=== PATIENT | female | born 1950 | race Asian ===

== ENCOUNTER → 2019-03-22 10:38 | Outpatient (CLI) | payer OTHER, SELFPAY ==
--- NOTE | ~2019-03-22 | XR_ITS ---
EXAMINATION: XR chest 2V EXAM DATE: 03/22/2019 10:59 INDICATION: Right lower chest pain. TECHNIQUE: Frontal and lateral projections of the chest obtained and reviewed. There is no prior monica dy for comparison. FINDINGS: There is tortuosity of the aorta. Right middle lobe or lingular subsegmental atelectasis s een on lateral. The lungs are otherwise clear. There are no pleural effusions. The cardiomediastina l silhouette is within normal limits. There is no pneumothorax suspected. Mild to moderate thoracal lumbar scoliosis. Mild to moderate thoracolumbar chronic appearing compression fracture. IMPRESSION: Right middle lobe or lingular subsegmental atelectasis. Reviewed, dictated and finalized at location A. ICATION CONSULTANT
== END ==
PROVIDERS: PCP Emergency Medicine; Visit Provider Emergency Medicine
DX: R09.1 Pleurisy (principal); R91.8 Other nonspecific abnormal finding of lung field
CPT/HCPCS: 71046

== ENCOUNTER 2020-07-05 09:31 | Outpatient (CLI) | payer OTHER, SELFPAY ==
--- NOTE | ~2020-07-05 | MM_ITS ---
EXAMINATION: MM screening daria BI w whitney HISTORY: Screening TECHNIQUE: Craniocaudal and mediolateral oblique 3-D tomosynthesis images were obtained and synthetic 2-D images were generated. CAD analysis was submitted and interpreted. COMPARISON: No prior mammogram is available for comparison at this institution. BREAST PARENCHYMAL COMPOSITION: The breasts are heterogeneously dense, which may obscure small masses . FINDINGS: There is no evidence of suspicious mass, calcification, or architectural distortion to sugg est malignancy in either breast. There has been no suspicious interval change. IMPRESSION: 1. No mammographic evidence of malignancy. 2. Recommend routine screening mammography in one year. BI-RADS Category 1: Negative Reviewed, dictated and finalized at location A.
--- NOTE | ~2020-07-05 | DEXA_ITS ---
Bone Density Report Name: Raphael Chaves Age: 69 Sex: Female Ethnicity: Date of : 1950 Indication: postmenopausal; parental hip fracture; height loss; Referring Provider: ABNER HANCOCK Study: Bone densitometry was performed. Exam Date: July 05, 2020 Accession number: [id number] Bone Density: Region BMD T-score Z-score Classification AP Spine (L1, L3, L4) 0.915 -1.3 0.9 Osteopenia Femoral Neck (Left) 0.575 -2.5 -0.6 Osteoporosis Total Hip (Left) 0.750 -1.6 0.0 Osteopenia Total Hip Bilateral Avg 0.769 -1.5 0.2 Osteopenia Femoral Neck (Right) 0.647 -1.8 0.0 Osteopenia Total Hip (Right) 0.787 -1.3 0.3 Osteopenia World Health Organization criteria for BMD impression classify patients as: Normal (T-score at or above -1.0), Osteopenia (T-score between -1.0 and -2.5), or Osteoporosis (T-score at or below -2.5). 10-year Fracture Risk: FRAX not reported because: Some T-score for Spine Total or Hip Total or Femoral Neck at or below -2.5 Clinical Information Provided by Patient: Parent has had a hip fracture Has used the following medications: Vitamin D, Calcium Patient maximum height was 63 Menopause Age: 47 Drinks caffeinated beverages Onset of menses at age 15 Number of children 2 Impression: The patient has osteoporosis, based on the Left Femoral Neck T-score. The patient has risk factors, including: parental hip fracture. Discussion: INCREASED RISK OF FRACTURE. BONE DENSITY IS UNDESIRABLY LOW AT ONE OR MORE SKELETAL SITES, CONSISTENT WITH POSTMENOPAUSAL OSTEOPOROSIS. This patient's lowest T-score meets the World Health Organization's (WHO) criteria for osteoporosis at one or more sites (T-score -2.5 or below). In untreated patients, the risk of osteoporotic fracture increases approximately two-fold for each 1.0 SD decrease in T-score. Low bone density is not the only risk factor for fracture; also consider factors such as patient's age, frailty or poor health, risk of falling, risk of injury, previous osteoporotic fracture, family history of osteoporosis, cigarette smoking, low body weight, etc. Not everyone with low bone mineral density has osteoporosis; osteomalacia and other metabolic bone disorders should also be considered. Patients who have osteoporosis should be evaluated for specific diseases and conditions (secondary causes) that may cause or contribute to bone loss. The [place] [employer] Clinical Endocrinologists (AACE) and National Osteoporosis Foundation (NOF) recommend pharmacologic intervention for all postmenopausal women whose T-score is in this range. The patient should follow a healthful lifestyle (good nutrition with adequate calcium and vitamin D, and appropriate weight-bearing exercise). Follow-Up: Consider a repeat BMD and Vertebral Fracture Assessment (VFA) exam in 2 years or soon
== END 2020-07-05 09:32 | disposition home or self-care (01) ==
LOC: ANHIMG 09:36
PROVIDERS: PCP Emergency Medicine; Visit Provider Emergency Medicine
DX: Z12.31 Encounter for screening mammogram for malignant neoplasm of breast (principal); R91.1 Solitary pulmonary nodule; M81.0 Age-related osteoporosis without current pathological fracture; M85.852 Other specified disorders of bone density and structure, left thigh; M85.851 Other specified disorders of bone density and structure, right thigh
CPT/HCPCS: 77063; 77067; 77080

== ENCOUNTER 2020-07-20 11:08 | Outpatient (CLI) | payer OTHER, SELFPAY ==
--- NOTE | ~2020-07-20 | CT_ITS ---
EXAMINATION: CT diagnostic chest wo con EXAM DATE: 07/20/2020 11:30 INDICATION: Lung nodule. TECHNIQUE: Spiral CT of the chest without contrast. Axial, coronal and sagittal images of the chest were reviewed. Coronal maximum intensity pixel images of chest reviewed. The dose-length product ( DLP) for this examination was 66.25 mGy-cm. The exposure was tailored according to patient size (aut o mA exposure control), and iterative reconstruction (ASIR) was used as additional dose reduction gema hnique. There is no prior study for comparison. FINDINGS: There are 2 right lower lobe nodules, appear to have small amount calcification. Probably granulomas. Mild emphysema. Mild bronchiectasis. Lingular subsegmental atelectasis.. There are no pl eural or pericardial effusions. Tracheobronchial tree is patent. There is no mediastinal, hilar o r axillary lymphadenopathy. There is no pneumothorax. Heart normal in size. There is minimal co ronary arterial calcification, arterial sclerosis. Upper abdomen is unremarkable. There is mild to moderate thoracic spondylosis without osteoblastic or osteolytic lesions identified. There is mild t o moderate anterior wedging of the L1 vertebral body, chronic. IMPRESSION: 1. Lingular subsegmental atelectasis. 2. Right lower lobe granulomata. 3. Mild emphysema and bronchiectasis. Reviewed, dictated and finalized at location B.
== END 2020-07-20 11:09 | disposition home or self-care (01) ==
LOC: ANHIMG 11:10
PROVIDERS: PCP Emergency Medicine; Visit Provider Emergency Medicine
DX: R91.1 Solitary pulmonary nodule (principal); J98.11 Atelectasis; J84.10 Pulmonary fibrosis, unspecified; J43.9 Emphysema, unspecified; J47.9 Bronchiectasis, uncomplicated
CPT/HCPCS: 71250

== ENCOUNTER 2021-07-12 10:19 | Outpatient (CLI) | payer OTHER, SELFPAY ==
--- NOTE | ~2021-07-12 | MM_ITS ---
EXAMINATION: MM screening daria BI w whitney HISTORY: Screening mammogram TECHNIQUE: Craniocaudal and mediolateral oblique 3-D tomosynthesis images were obtained and synthetic 2-D images were generated. CAD analysis was submitted and interpreted. COMPARISON: 07/05/2020 bilateral screening mammogram BREAST PARENCHYMAL COMPOSITION: The breasts are heterogeneously dense, which may obscure small masses . FINDINGS: There is no evidence of suspicious mass, calcification, or architectural distortion to sugg est malignancy in either breast. There has been no suspicious interval change. IMPRESSION: 1. No mammographic evidence of malignancy. 2. Recommend routine screening mammography in one year. BI-RADS Category 1: Negative Reviewed, dictated and finalized at location A.
== END 2021-07-12 10:20 | disposition home or self-care (01) ==
PROVIDERS: PCP Emergency Medicine; Visit Provider Emergency Medicine
DX: Z12.31 Encounter for screening mammogram for malignant neoplasm of breast (principal)
CPT/HCPCS: 77063; 77067

== ENCOUNTER 2022-03-11 00:51 | Day surgery (SDC) | payer OTHER, SELFPAY ==
[2022-02-27 12:16] VITALS: BMI 25.3
--- NOTE | 2022-03-11 07:07 | P.PNAN_ITS ---
Anes - Initial Pre Proc Eval Procedure: Operation Date: 03/11/22 11:15 Proposed Procedures p Esophagogastroduodenoscopy & Screening Colonoscopy - Carlos Enrique Suárez MD Date/Time: 03/11/22 07:07 Surgeon: Carlos Enrique Suárez MD Pre Op Diagnosis: GERD, hx colon polyps Patient Data Age: 71 Gender: F Height: 1.5 m Weight: 57 kg Allergies Allergy/AdvReac Type Severity Reaction Status Date / Time No Known Allergies Allergy Unverified 03/11/22 10:13 Home Medications Medication Instructions Recorded Confirmed Type carbidopa 25 mg-levodopa 250 mg 1 tablet PO TID 03/11/22 03/11/22 History tablet omeprazole 20 mg capsule,delayed 20 mg PO DAILY #30 caps 03/11/22 Rx release selegiline HCl 5 mg tablet 5 mg PO BID 03/11/22 03/11/22 History Patient hx anesthesia problems: none Family hx anesthesia problems: none Results Review: All pre-operative results and documents have been reviewed as part of the pre- operative evaluation. [facility] Past Medical History Medical History (Updated 03/11/22 @ 11:50 by Carlos Enrique Suárez MD) Parkinson disease Social History Social History (Updated 07/10/20 @ 13:09 by Faith Schneider MA) Smoking status: Never smoker Alcohol intake: never Living arrangements: with family Spiritual care concerns: No Anes - Eval Final PreProcedure Day of Procedure 03/11/22 07:07 Patient weight: normal Heart: regular rate and rhythm Lungs: clear to auscultation and normal air movement Airway: Mallampati scale class II Neurological: alert and oriented Last oral intake: >/= 8 hours ASA classification: III Emergent: no Anesthetic plan: proceed Anesthesia type and monitoring: general GIVS and standard monitoring Results Review: All pre-operative results and documents have been reviewed as part of the pre- operative evaluation. Informed Consent: The patient's anesthetic plan and its attendant risks and benefits were discussed with the patient/family/POA. Questions were solicited and answers provided to the satisfaction of the patient/family/POA.
[2022-03-11 10:16] VITALS: BP 127/83; PULSE 71; RESP 16; TEMP 36.4; O2SAT 100
[2022-03-11] MEDS: LACTATED RINGERS 1,000 ML 150 ML IV CONT (10:23)
--- NOTE | 2022-03-11 10:48 | PM.HPGS ---
History of Present Illness History of Present Illness Consent: Risks, benefits, and alternatives have been discussed and questions answered. Patient agrees to proceed with procedure. Chief complaint: GERD, hx colon polyps Narrative: Raphael Chaves is a 71 year old female Referred for both colonoscopy an EGD by Dr. Becerra. Patient speaks only French. History is obtained with the assistance of her daughter. Patient has a prior history of colon polyps. Patient apparently previously followed by Dr. Harris. Previous exam in 2018. She presents today for colonoscopy because of this prior history. She states that her weight appetite bowel movements are normal. No bleeding is noted. Her weight has remained stable. Patient also gives a history of GE reflux disease. She has a distant history of esophageal web. Recently has had atypical chest pain with frequent vomiting over the last year. Typically this only clears in the morning. She has rather vague abdominal discomfort poorly localized. She states that could be similar to the urge to have a bowel movement. EGD is requested by primary care service today. Review of Systems Review of Systems: Review of systems noncontributory. [facility] Past Medical History Medical History (Updated 03/11/22 @ 10:51 by Carlos Enrique Suárez MD) Parkinson disease Social History Social History (Updated 07/10/20 @ 13:09 by aFith Schneider MA) Smoking status: Never smoker Alcohol intake: never Living arrangements: with family Spiritual care concerns: No Meds Home Medications and Allergies Home Medications Medication Instructions Recorded Confirmed Type famotidine 20 mg tablet 20 mg PO DAILY 02/27/22 03/11/22 History carbidopa 25 mg-levodopa 250 mg 1 tablet PO TID 03/11/22 03/11/22 History tablet selegiline HCl 5 mg tablet 5 mg PO BID 03/11/22 03/11/22 History Allergies Allergy/AdvReac Type Severity Reaction Status Date / Time No Known Allergies Allergy Unverified 03/11/22 10:13 Vital Signs Vital Signs - 24 hr 03/11/22 10:16 Temperature 97.5 F L Pulse Rate 71 Respiratory Rate 16 Blood Pressure 127/83 Pulse Oximetry 100 Oxygen Delivery Room Air Exam Narrative: Physical exam reveals patient be alert. Vital signs stable. HEENT exam is unremarkable. Patient is anicteric. Lungs are clear. Heart without murmur. Abdomen bowel sounds present soft nontender with no organomegaly. Digital external rectal exam is normal. Assessment and Plan Assessment and plan (1) History of colon polyps: Code(s): Z86.010 - Personal history of colonic polyps Status: Acute Assessment and Plan: Patient has had colon polyps previously by Dr. Harris . Plan for surveillance colonoscopy now. Consider this at 5 year intervals. (2) Vomiting: Code(s): R11.10 - Vomiting, unspecified Status: Acute Assessment and Plan: Patient reports vomiting in the morning for the last year. EGD is requested will be performed. If this fails to identify difficulties follow-up in the office so that more complete history can be obtained is advised. Trial of anti-reflux measures also encouraged. Elevate head of bed at night no late snacks. [place] foods. Patient currently on famotidine. We may wish to try stronger acid suppression. Such as Prilosec. (3) GERD (gastroesophageal reflux disease): Code(s): K21.9 - Gastro-esophageal reflux disease without esophagitis Status: Acute Assessment and Plan: Patient gives a history of GE reflux disease. Old records reflect she did have distal esophageal web in 2014. EGD to be performed today. Consider Prilosec 20mg p.o. daily as an alternative to famotidine.
--- NOTE | 2022-03-11 11:52 | SUR.OPER ---
EGD ended at 1146. Colonoscopy started at 1151.
[2022-03-11 12:05] VITALS: BP 102/62; PULSE 69; RESP 17; O2SAT 100
[2022-03-11 12:15] VITALS: BP 103/65; PULSE 66; RESP 15; O2SAT 100
[2022-03-11 12:25] VITALS: BP 109/64; PULSE 61; RESP 16; O2SAT 99
== END 2022-03-11 12:35 | disposition home or self-care (01) ==
PROVIDERS: PCP Emergency Medicine; Visit Provider Internal Medicine Gastroenterology
PROC: 0DJ08ZZ Inspection of Upper Intestinal Tract, Via Natural or Artificial Opening Endoscopic (ICD-10-PCS; CPT 43235; principal; 2022-03-11 11:15)
DX: Z12.11 Encounter for screening for malignant neoplasm of colon (principal); K64.8 Other hemorrhoids; K22.70 Barrett's esophagus without dysplasia; K21.9 Gastro-esophageal reflux disease without esophagitis; G20 Parkinson's disease
CPT/HCPCS: 45378; 43239; 87081; 88305; J2704; J7120

== ENCOUNTER 2022-09-29 14:10 | Outpatient (CLI) | payer OTHER, SELFPAY ==
--- NOTE | ~2022-09-29 | DEXA_ITS ---
Bone Density Report Name: BONIFACIO FERNANDES Age: 72 Sex: Female Ethnicity: Date of : 1950 Indication: postmenopausal; screening for osteoporosis; height loss; Referring Provider: ABNER HANCOCK Study: Bone densitometry was performed. Exam Date: September 29, 2022 Accession number: [id number] Bone Density: Region BMD T-score Z-score Classification AP Spine(L1-L4) 0.924 -1.1 1.2 Osteopenia Femoral Neck (Left) 0.584 -2.4 -0.4 Osteopenia Total Hip (Left) 0.736 -1.7 0.0 Osteopenia Femoral Neck (Right) 0.660 -1.7 0.3 Osteopenia Total Hip (Right) 0.784 -1.3 0.4 Osteopenia Total Hip Mean 0.760 -1.5 0.2 Osteopenia World Health Organization criteria for BMD impression classify patients as: Normal (T-score at or above -1.0), Osteopenia (T-score between -1.0 and -2.5), or Osteoporosis (T-score at or below -2.5). 10-year Fracture Risk: FRAX not reported because: Treated for osteoporosis Clinical Information Provided by Patient: Is being treated for osteoporosis Has used the following medications: Prolia (i.e. denosumab), Calcium Patient maximum height was 64 Menopause Age: 47 Drinks caffeinated beverages Onset of menses at age 14 Number of children 1 Impression: The patient has low bone mass, based on the Left Femoral Neck T-score. Discussion: It is important to ask patients whether they are taking their medications and to encourage continued and appropriate compliance with their osteoporosis therapies to reduce fracture risk. It is also important to review their risk factors and encourage appropriate calcium and vitamin D intakes, exercise, fall prevention and other lifestyle measures. Follow-Up: Consider a repeat BMD and Vertebral Fracture Assessment (VFA) exam in 2 years or sooner if medically necessary, to reassess this patient's status. Reported by: FERNANDO on 09/29/2022 2:32:00 PM. Reviewed, dictated and finalized at location AFlorencia ONTIVEROS
== END 2022-09-29 14:11 | disposition home or self-care (01) ==
LOC: ANHIMG 14:11
PROVIDERS: PCP Emergency Medicine; Visit Provider Emergency Medicine
DX: M81.0 Age-related osteoporosis without current pathological fracture (principal); M85.88 Other specified disorders of bone density and structure, other site; M85.852 Other specified disorders of bone density and structure, left thigh; M85.851 Other specified disorders of bone density and structure, right thigh
CPT/HCPCS: 77080

== ENCOUNTER 2024-11-14 08:48 | Outpatient (CLI) | payer OTHER, SELFPAY ==
--- NOTE | ~2024-11-14 | XR_ITS ---
EXAMINATION: XR chest 2V, 11/14/2024 9:09 CDT HISTORY: shortness of breath COMPARISON: No comparisons available. Technique: 2 views obtained. Findings: The lungs are clear, no effusion. No pneumothorax. Heart is normal size. Mediastinal and hilar contours are within normal limits. Bony thorax no acute abnormality. Impression: No acute cardiopulmonary abnormality. Reviewed, dictated and finalized at location P. Impression: No acute cardiopulmonary abnormality.
--- OUTSIDE RECORDS SUMMARY | 2024-11-14 09:13 | XMS_ITS | Clinical Summary ---
Author Organization [facility] [employer] Address [address] [place] [address] Care Team Providers Care Manager Call Center Name Role Phone Fareed Becerra MD Primary Care Provider [phone] Source Comments [facility] [employer],non-owned Affiliates and Associated Physician Practices is amultiple site organization consisting of ambulatory clinics and hospital sitesin [place], [place], [place] and [place]. This disclosure is being madepursuant to the Care Everywhere program and may not contain all information available regarding this patient. Last updated 17.[employer] Allergies No known active allergies Medications * Be aware that medications may not be up to date on this document. Alwaysverify current medications with the patient. gabapentin (NEURONTIN) 300 MG capsule Take 1 (one) capsule by mouth once daily 01/01/2018 Active simvastatin (ZOCOR) 10 MG tablet Take 1 tablet by mouth once daily 01/01/2018 Active Coenzyme Q10 (CO Q-10) 120 MG Take 120 mg by mouth 2 times daily Active Calcium Carbonate (CALCIUM 600 PO) Take 1 tablet by mouth 2 times daily Active famotidine (PEPCID) 40 MG tablet Take 1 (one) tablet by mouth once daily 04/09/2021 Active omeprazole (PRILOSEC) 20 MG capsule 04/22/2021 Active famotidine (PEPCID) 20 MG tablet Take 1 (one) tablet by mouth 2 times daily 06/21/2021 Active carbidopa-levod opa (Sinemet) 25-100 MG tabletIndicatio ns:Parkinson's Disease Take 2 (two) tablets by mouth 3 times daily Reasons: Parkinson's Disease 540 tablet 5 12/02/2022 Active selegiline (Eldepryl) 5 MG tabletIndicatio ns:Parkinson's Disease Take 1 (one) tablet by mouth 2 times daily with morning and evening meal Reasons: Parkinson's Disease 180 tablet 5 12/02/2022 Active Active Problems Problem Noted Date Diagnosed Date Osteoporosis 12/03/2020 Immunizations Immunization Administration Dates Next Due INFLUENZA VACCINE, HIGH-DOSE , QUADR. (FLUZONE HIGH-DOSE QUADRIVALENT; 65Y+), 0.7 ML (HD-IIV4) 11/30/2020,10/26/2019 INFLUENZA VACCINE, QUADR. (F LUZONE; FLULAVAL; FLUARIX; AFLURIA QUADRIVALENT; 6MO+), 0.5 ML (IIV4) 01/22/2018 MMR 02/12/2010 TD (ADULT), 5 LF TETANUS TOXOID, ADSORBED, PF VARICELLA 02/12/2010,12/11/2009 ZOSTER VACCINE, LIVE 11/27/2015 Zoster Hzv Vacc Recombinant Inj Im 01/22/2018, Family History Medical History Relation Name Comments Other - Cardiac Father Heart Diseas e Relation Name Status Comments Father Mother Social History Tobacco Use Types Packs/Day Years Used Date Smoking Tobacco: Never Smokeless Tobacco: Never Tobacco Cessation:Counseling Given: Not Answered Alcohol Use Standard Drinks/Week Comments No 0 (1 standard drink = 0.6 oz pur e alcohol) Comments No Sex and Gender Information Value Date Recorded Sex Assigned at Not on file Legal Sex Female 3:33 PM CDT Gender Identity Not on file Sexual Orientation Not on file Last Filed Vital Signs Vital Sign Reading Time Taken Comments Blood Pressure 124/86 03/03/2023 8:22 AM [employer] Pulse 75 03/03/2023 8:22 AM [employer] Temperature 36.7 C (98 F) 03/03/2023 8:22 AM [employer] Respiratory Rate 20 03/03/2023 8:22 AM [employer] SALES [employer]ATE Oxygen Saturation 98% 03/03/2023 8:22 AM [employer] SAL[employer]ATE Inhaled Oxygen Concentration - - Weight 57.1 kg (125 lb 12.8 oz) 03/03/2023 8:22 AM [employer] SAL[employer] Height 152.4 cm (5') 11/20/2022 9:12 AM CDT Body Mass Index 24.57 11/20/2022 9:12 AM CDT Plan of Treatment Upcoming Encounters Date Type Department Care Team ([facility] st Contact Info) Description 11/21/2024 3:00 PM CDT Office Visit [facility] - Neurology [address] [place] [id number] BradyrekhaDevante, 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 [address] [place] [id number] Health Maintenance Due Date Last Done Comments BONE DENSITY TESTING 1950 COLOGUARD (AGES 45-75) - COL ON CA SCREENING 1950 COLON MONITORING 1950 COLONOSCOPY - COLON CA SCREENING 1950 CT COLONOGRAPHY - COLON CA SCREENING 1950 Colorectal Cancer Screening 1950 FIT - COLON CA SCREENING 1950 FLEX SIG - COLON CA SCREENING 1950 MAMMOGRAM 1950 HEPATITIS C SCREENING 08/06/1967 PNEUMOCOCCAL VACCINE 50+ (1 of 1 - PCV) 08/11/1999 DTAP/TDAP/TD VACCINES (2 - T d or Tdap) 12/12/2019 12/11/2009 DEPRESSION SCREENING 02/17/2024 Respiratory Syncytial Virus (RSV) Vaccine Pt: or over 60 yrs (1 - 1-dose 75+ series) 2024 COVID-19 VACCINE ( - 2023-2 5 season) 2024 INFLUENZA VACCINE (#1) 2024 , 10/26/2019, 01/22/2018 ZOSTER VACCINE Completed 01/22/2018, 08/07/2017, 11/27/2015 HEPATITIS B VACCINE Aged Out No longe r eligible based on patient's age to complete this topic HIB VACCINE Aged Out No longer eligi ble based on patient's age to complete this topic HPV VACCINE Aged Out No longer eligi ble based on patient's age to complete this topic MENINGOCOCCAL (Group B) VACCINE SHARED DECISION-MAKING Aged Out No longer eligible based on patient's age to complete this topic MENINGOCOCCAL GROUPS A/C/Y/W VACCINE Aged Out No longer eligible b ased on patient's age to complete this topic Insurance [facility] Care Teams Manager Call Center Relationship Specialty Start Date End Date Fareed Becerra MD PCP - General 01/11/18
== END 2024-11-14 08:49 | disposition home or self-care (01) ==
PROVIDERS: PCP Emergency Medicine; Visit Provider Emergency Medicine
DX: I95.9 Hypotension, unspecified (principal)
CPT/HCPCS: 71046

== ENCOUNTER 2024-11-24 01:32 | Day surgery (SDC) | payer OTHER, SELFPAY ==
[2024-11-23 09:03] VITALS: BMI 21.2
[2024-11-24 12:26] VITALS: BP 132/77; PULSE 80; RESP 20; TEMP 36.8; O2SAT 100
--- NOTE | 2024-11-24 12:53 | WPDANESEPPF ---
Anes - Initial Pre Proc Eval Procedure: Operation Date: 11/24/24 13:00 Proposed Procedures p EGD & Diagnostic Colonoscopy - Ron Carrasquillo MD Date/Time: 11/24/24 12:53 Surgeon: Ron Carrasquillo MD Pre Op Diagnosis: Iron deficiency anemia, unspecified Patient Data Age: 74 Gender: F Height: 1.52 m Weight: 47.2 kg Last Vital Signs Temp 98.2 F 11/24/24 12:26 Pulse 80 11/24/24 12:26 Resp 20 11/24/24 12:26 BP 132/77 11/24/24 12:26 Pulse Ox 100 11/24/24 12:26 O2 Del Method Room Air 11/24/24 12:26 Allergies Allergy/AdvReac Type Severity Reaction Status Date / Time No Known Allergies Allergy Verified 11/24/24 12:25 Home Medications ?Medication ?Instructions ?Recorded ?Confirmed ?Type carbidopa 25 mg-levodopa 250 mg 1 tablet PO TID 03/11/22 11/24/24 History tablet selegiline HCl 5 mg tablet 5 mg PO BID 03/11/22 11/24/24 History omeprazole 20 mg capsule,delayed 20 mg PO DAILY #30 caps 02/03/23 11/24/24 Rx release Patient hx anesthesia problems: none Family hx anesthesia problems: none Results Review: All pre-operative results and documents have been reviewed as part of the pre-operative evaluation. [facility] Past Medical History Medical History Parkinson disease Social History Social History Smoking status: Never smoker Alcohol intake: never Substance use: never Substance use type: does not use Living arrangements: with family Spiritual care concerns: No Anes - Eval Final PreProcedure Day of Procedure 11/24/24 12:53 Patient weight: normal Lungs: normal air movement Airway: Mallampati scale class II Neurological: alert and oriented Last oral intake: >/= 8 hours ASA classification: III Emergent: no Anesthetic plan: proceed Anesthesia type and monitoring: general GIVS and standard monitoring Results Review: All pre-operative results and documents have been reviewed as part of the pre-operative evaluation. Hx of barretts. Informed Consent: The patient's anesthetic plan and its attendant risks and benefits were discussed with the patient/family/POA. Questions were solicited and answers provided to the satisfaction of the patient/family/POA.
[2024-11-24] MEDS: LACTATED RINGERS 1,000 ML 150 ML IV CONT (13:01)
--- NOTE | 2024-11-24 13:05 | PM.HPGS ---
History of Present Illness History of Present Illness Consent: Risks, benefits, and alternatives have been discussed and questions answered. Patient agrees to proceed with procedure. Chief complaint: Iron deficiency anemia, unspecified Narrative: Raphael Chaves is a 74 year old female with zana, had scopes in 2022, noted cueva's Review of Systems Review of Systems: All systems reviewed & are unremarkable except as noted in HPI and below PMFSH Past Medical History Medical History (Updated 11/24/24 @ 13:06 by Ron Carrasquillo MD) Iron deficiency anemia Parkinson disease Social History Social History Smoking status: Never smoker Alcohol intake: never Substance use: never Substance use type: does not use Living arrangements: with family Spiritual care concerns: No Meds Home Medications and Allergies Home Medications ?Medication ?Instructions ?Recorded ?Confirmed ?Type carbidopa 25 mg-levodopa 250 mg 1 tablet PO TID 03/11/22 11/24/24 History tablet selegiline HCl 5 mg tablet 5 mg PO BID 03/11/22 11/24/24 History omeprazole 20 mg capsule,delayed 20 mg PO DAILY #30 caps 02/03/23 11/24/24 Rx release Allergies Allergy/AdvReac Type Severity Reaction Status Date / Time No Known Allergies Allergy Verified 11/24/24 12:25 Vital Signs Vital Signs - 24 hr 11/24/24 12:26 Temperature 98.2 F Pulse Rate 80 Respiratory Rate 20 Blood Pressure 132/77 Pulse Oximetry 100 Oxygen Delivery Room Air Exam Narrative: kyphosis Const: General: cooperative and comfortable Resp: Effort & Inspection: normal respiratory effort GI: GI Palp: Yes Soft to palpation Assessment and Plan Assessment and plan (1) Iron deficiency anemia: Code(s): D50.9 - Iron deficiency anemia, unspecified Status: Acute Assessment and Plan: egd and colonoscopy to assess if gi source
--- NOTE | 2024-11-24 13:14 | S_PTH ---
PATIENT: Raphael Chaves LOC: [facility]#:[id number] AGE/SX: 74/F ROOM: RE11/24/[address]: Ron Carrasquillo MD : 1950 BED: DIS: 11/24/2024 SPEC #: [id number] RECD: 11/25/24 07:10 STATUS: PEG REQ #: [id number] AMADO: 11/24/24 13:[address]: Ron Carrasquillo DEPT: [facility] Surgical RECD BY: Lynnette Pappas ENTERED: 11/25/24 07:11 SP TYPE: Surgical OTHR DR: Fareed Becerra MD Tissues: A - Small Bowel Bx B - Gastric Biopsy C - Esophageal Biopsy Procedures: Hematoxylin and Eosin Stain Gross and Microscopic Level 4
--- NOTE | 2024-11-24 13:23 | SUR.OPER ---
EGD ended at 1316, colon began at 1324.
[2024-11-24 13:35] VITALS: BP 125/63; PULSE 65; RESP 20; O2SAT 98
[2024-11-24 13:45] VITALS: BP 119/71; PULSE 66; RESP 19; O2SAT 98
[2024-11-24 13:55] VITALS: BP 148/77; PULSE 68; RESP 19; O2SAT 98
== END 2024-11-24 14:13 | disposition home or self-care (01) ==
PROVIDERS: PCP Emergency Medicine; Referring Provider Emergency Medicine; Visit Provider Internal Medicine Gastroenterology
PROC: 0DJ08ZZ Inspection of Upper Intestinal Tract, Via Natural or Artificial Opening Endoscopic (ICD-10-PCS; CPT 45378; principal; 2024-11-24 13:00)
DX: D50.9 Iron deficiency anemia, unspecified (principal); K22.70 Barrett's esophagus without dysplasia; K64.8 Other hemorrhoids; G20.A1 Parkinson's disease without dyskinesia, without mention of fluctuations
CPT/HCPCS: 43239; 45378; 88305; J2003; J2704; J7120

== ENCOUNTER 2024-12-07 14:42 | Outpatient (CLI) | payer OTHER, SELFPAY ==
[2024-12-07 15:09] LABS: Hematocrit 38.6 % (37.0-47.0); Hemoglobin 11.0 g/dL (12.0-15.0); Immature Granulocyte Percent A 0.1 % (0-0.5); Lymphocytes Absolute Auto 1.76 K/mm3 (0.9-3.2); Mean Corpuscular HGB Conc 28.5 g/dl (32-36); Mean Corpuscular Hemoglobin 21.4 pg (26-34); Mean Corpuscular Volume 75.2 fl (80-100); Nucleated Red Blood Cells Absolute Auto 0.000 K/mm3 (0.0-0.012); Nucleated Red Blood Cells Perc 0.0 % (0.0-0.2); Platelet Count Result 360 k/mm3 (150-375); Red Blood Count 5.13 M/mm3 (4.2-5.4); White Blood Count 8.1 K/mm3 (4.5-10.0)
[2024-12-07 15:11] LABS: Schistocytes None Seen
[2024-12-07 15:20] LABS: Anisocytosis 2+; Hypochromasia 2+; Ovalocytes 1+
[2024-12-07 17:22] LABS: Alanine Aminotransferase 11 U/L (6-35); Albumin Level 4.6 g/dL (3.5-5.1); Alkaline Phosphatase 79 U/L (38-126); Anion Gap 10 mmol/L (4-12); Aspartate Amino Transferase 36 U/L (14-36); Bilirubin,Total 0.7 mg/dL (0.2-1.3); Blood Urea Nitrogen 21 mg/dL (7-17); Calcium 9.8 mg/dL (8.4-10.2); Carbon Dioxide 27 mmol/L (22-30); Chloride 100 mmol/L (98-107); Estimated Glomerular Filt Rate > 60; Glucose 118 mg/dL (65-110); Potassium 4.0 mmol/L (3.4-5.0); Sodium 137 mmol/L (137-145); Total Protein 8.4 g/dL (6.3-8.2)
[2024-12-07 17:38] LABS: Iron 14 ug/dL (37-170)
[2024-12-07 17:48] LABS: Percent Iron Saturation 3 % (20-50)
[2024-12-07 18:16] LABS: Ferritin 41.30 ng/mL (11.1-264)
[2024-12-07 18:33] LABS: Vitamin B12 920.0 pg/mL (239-931)
--- OUTSIDE RECORDS SUMMARY | 2024-12-07 19:09 | XMS_ITS | Data Portability ---
Author Organization [facility], [place] Address [address] [address] [place] [address] Care Team Providers Care Cloth Desizing Range Tender Name Role Phone ABNER HANCOCK Primary Care Provider Assessment No assessment recorded. Plan of Treatment Reminders Order Date Submit Date Provider Last Modified By Organization Details Last Modified Time Details Appointments None recorded. Lab None recorded. Referral None recorded. Procedures None recorded. Surgeries None recorded. Imaging US, transvagina l 2021 022 [address], [address], [place], [address], 21:30:49 US, pelvis 2021 022 [address], [address], [place], [address], 00:39:28 US, transvagina l 2021 [address], [address], [place], [address], 00:39:28 Medication Orders None recorded. Patient TargetsNo targets recorded. Patient InstructionsNo instructions recorded. Reason for Referral None Reported. Results Created Date Observation Date Name Description Value Unit Range Abnormal Flag Note LastModifiedBy Organization Detail LastModifiedTime 04/27/19 22 04/26/2021 SURGI KAREL PATHO LOGY surgical pathology SEE RESULT S BELOW CASE REPOR T: Surgi karel Patho logy Repor t Case: [id number] Autho stephen cano Provi david: Fannie Goodman MD Colle cted: 04/26 1441 Order ing Locat ion: [place] Patho logy Recei jenaro: 04/27 0403 Patho logis t: Emy Ireland MD Speci men: Endom etriu m, EMB FINAL DIAGN OSIS: Endom etriu m, biops y: -Rare minut e super ficia l strip s of inact millie endom etria l gland s. -No anuel hughes ident ified . Elect naty fontanez by Emy Ireland MD on 2021 at 3:40 PM ----- ----- ----- ----- ----- ----- ----- ----- ----- ----- ----- ----- ----- ----- ----- ----- ----- ---- CLINI KAREL INFOR MATIO N: NOT PROVI DED MICRO SCOPI C DESCR IPTIO N: A micro scopi c exami natio n was perfo rmed. GROSS DESCR IPTIO N: A. Endom etriu m. The speci men is label ed with the patie nt's name, demog raphi cs and EMB. Recei jenaro in forma shannon is a 1.1 x 0.2 x 0.[address] of minut e ames tissu e. The entir e speci men is submi tted in one casse tte. Gross ed by Mynor Anaya on Not Available [facility] (Lab) [address], [place], [address], 04/29/2021 16:43:00 05/09/19 22 05/08/2021 CULTU RE: URINE result report SEE RESULT S BELOW Test: Cultu re: Urine Speci men Sourc e: Urine - Clean Catch Speci men Type: Urine Speci men Date: 2021 3:06 PM Resul t Date: 2021 7:54 PM Resul t Statu s: Final resul t Abnor mal: No Resul ting Lab: [facility] [address] [facility] [address] Tel: CULTU RE ----- ----- ----- --- No growt h in 1 day (dete ction level of 10,00 0 colon ies / ml.) Not Available [facility] (Lab) [address], [place], [address], 05/09/2021 20:56:30 05/09/19 22 05/08/2021 urina lysis , dipst ick Leukocytes TRACE Not Available [facility] [address], [place], [address], 05/08/2021 15:44:57 04/27/19 22 04/26/2021 US, pelvi s, trans abdom inal + trans vagin al No observ ation record ed. [facility] [address], [place], [address], 04/30/2021 11:14:51 06/21/19 22 06/20/2021 US, pelvi s No observ ation record ed. [email or web address] [place] [address], [place], [address], 06/20/2021 16:14:28 06/21/19 22 06/20/2021 US, trans vagin al No observ ation record ed. [email or web address] [place] [address], [place], [address], 06/20/2021 16:14:39 06/21/19 22 06/20/2021 US, pelvi s No observ ation record ed. [email or web address] [address] [address], [place], [address], 06/21/2021 00:30:11 09/28/19 22 09/27/2021 US, trans vagin al No observ ation record ed. [email or web address] [place] [address], [place], [address], 09/27/2021 13:21:05 09/28/19 22 09/27/2021 US, trans vagin al No observ ation record ed. [email or web address] [facility] [address], [place], [address], 09/29/2021 19:09:55 Result Notes None recorded. Procedures Surgical History Date Name Laterality Status Provider Name and Address Organization Details Recorded Time 04/27/19 Endometrial Biopsy completed Guicho Goodman MD [address], [place], [address], [facility] 04/26/2021 13:37:01 Imaging Results None recorded. Procedure Notes None recorded. Medical Equipment None Reported. Allergies No known drug allergies Medications Name Sig Start Date Stop Date Status Note LastModified by Organization Details LastModified Time carbidopa 25 mg-levodopa 250 mg tablet TAKE 1 TABLET BY MOUTH THREE TIMES DAILY active Not Available Not Available Not Available valacyclovir 1 gram tablet TAKE 1 TABLET BY MOUTH THREE TIMES DAILY active Not Available Not Available Not Available famotidine 40 mg tablet TAKE 1 TABLET BY MOUTH ONCE DAILY active Not Available Not Available No t Available prednisone 20 mg tablet TAKE 3 TABLETS BY MOUTH ONCE DAILY active Not Available Not Available No t Available alendronate 70 mg tablet TAKE 1 TABLET BY MOUTH ONCE A WEEK IN THE MORNING, AT LEAST 30 MINUTES BEFORE FIRST FOOD,BEVERA GE,OR MEDICATION OF DAY. active Not Available Not Available No t Available ciprofloxaci n 500 mg tablet TAKE 1 TABLET BY MOUTH EVERY 12 HOURS FOR 3 DAYS active Not Available Not Available N ot Available famotidine 20 mg tablet TAKE 1 TABLET BY MOUTH TWICE DAILY active Not Available Not Available No t Available ropinirole 0.25 mg tablet active Not Available Not Available Not Available omeprazole 20 mg capsule,curry yed release TAKE 1 CAPSULE BY MOUTH ONCE DAILY BEFORE A MEAL NEEDED active Not Available Not Available No t Available carbidopa 25 mg-levodopa 100 mg tablet TAKE 1 & 1/2 (ONE & ONE-HALF) TABLETS BY MOUTH THREE TIMES DAILY active Not Available Not Available Not Available selegiline 5 mg capsule TAKE 1 CAPSULE BY MOUTH TWICE DAILY WITH MORNING AND EVENING MEAL. active Not Available Not Available No t Available Vitals Date Recorded Body height Body mass index (BMI) Body weight Systolic And Diastolic Provider Name and Address Organization Details Last Updated DateTime 05/08/2021 154.94 cm 24 kg/m2 76596.23 g 134/85 mm[Hg] [facility] 05/08/2021 14:55:49 Date Recorded Body height Body mass index (BMI) Body weight Systolic And Diastolic Provider Name and Address Organization Details Last Updated DateTime 06/28/2021 154.94 cm 24 kg/m2 39804.23 g 137/84 mm[Hg] [facility] 06/28/2021 11:20:33 Date Recorded Body height Body mass index (BMI) Body weight Systolic And Diastolic Provider Name and Address Organization Details Last Updated DateTime 10/04/2021 154.94 cm 24.2 kg/m2 03808.82 g 115/81 mm[Hg] [facility] 10/04/2021 11:01:16 Social History Question Answer Notes LastModified by Organizat ion Details LastModified Time Do You Have An Advance Directive? No Information n ot available 10/04/2021 Are You Blind Or Do You Have Difficulty Seeing? No Information not available 10/04/2021 What Is Your Level Of Caffeine Consumption? None Information not available 10/04/2021 In The 14 Days Before Symptom Onset, Have You Had Close Contact With A Laboratory-confirme d COVID-19 While That Case Was Ill? No Information n ot available 10/04/2021 In The 14 Days Before Symptom Onset, Have You Had Close Contact With A Person Who Is Under Investigation For COVID-19 While That Person Was Ill? No Information not available 10/04/2021 Have You Been To An Area Known To Be High Risk For COVID-19? No Information not available 10/04/2021 Are You Deaf Or Do You Have Serious Difficulty Hearing? No Information not available 10/04/2021 What Type Of Diet Are You Following? REGULAR Information n ot available 10/04/2021 What Is The Highest Grade Or Level Of School You Have Completed Or The Highest Degree You Have Received? [id number] Information not available 10/04/2021 Are There Any Guns Present In Your Home? No Information not available 10/04/2021 Do You Use Your Seat Belt Or Car Seat Routinely? Yes Information not available 10/04/2021 Do You Have Smoke And Carbon Monoxide Detectors In Your Home? Yes Information not available 10/04/2021 How Much Tobacco Do You Smoke? No Information not available 10/04/2021 Do You Use Sunscreen Routinely? No Information not available 10/04/2021 Have You Used IV Drugs? No Information not available 10/04/2021 Sex: Unknown Functional Status Question Answer Note LastModified by Organizat ion Details LastModified Time Do you use any illicit or recreational drugs? No Information not available 10/04/2021 What is your level of alcohol consumption? None Information not available 10/04/2021 Are you able to walk independently without assistance or assistive devices? YESASSIST Information not available 10/04/2021 What is your exercise level? Occasional Information not available 10/04/2021 Mental Status Question Answer Note LastModified by Organization D etails LastModified Time Do you feel stressed (tense, restless, nervous, or anxious, or unable to sleep at night)? [id number] Information not available 10/04/2021 Family History Relationship Description Onset Age of this Age Resolved Age Notes LastModified by Organization Details LastModified Time Father Heart disease Not available 2021 14:08:30 Father Hyperlipidem ia Not available 2021 10:54:23 Father Hypertensive disorder Not available 2021 14:09:12 Brother Heart disease Not available 2021 14:08:30 Brother Hypertensive disorder Not available 2021 14:09:12 Sister Hypertensive disorder Not available 2021 14:09:12 Sister Female infertility [email or web address] Not available 09/16 10:54:23 Medical History Condition Response Other Thyroid Problems Y Gynecological History Statement/Question Response Date of Last Pap Smear Current Control Method Menopause Obstetrics History GPAL:G 2 P 0 0 1 1 Type Value Induced 1 Living 1 Total 2 Past Encounters Encounter ID Performer Location Encounter Start Date Encounter Closed Date Diagnosis/Indication Diagnosis SNOMED-CT Code Diagnosis ICD10 Code Diagnosis IMO Codes Diagnosis Note [id number] Guicho Goodman MD [place] [address] [address] 04/26/2021 11:50:17 04/26/2021 13:41:23 Postmenopausal bleeding 38473678 N95.0 this patient is a 70-year-ol d female presents for postmenopa usal bleeding. She had an episode of postmenopa usal bleeding. It was fairly light. Patient has not had any screening for cervical cancer gynecologi c exam In many years. She denies any pain. Spoke about the evaluation . We spoke about endometria l biopsy. We spent 15 minutes talking. We then performed the biopsy. She tolerated it well. [id number] Guicho Goodman MD [place] [address] [address] 05/08/2021 14:49:36 05/08/2021 15:27:44 Cyst of ovary 52717166 N83.209 Pain in pelvis 00019817 R10.2 Urinary tr act infectious disease 48992434 N39.0 this patient is a 70-year-ol d female presents for follow-up on ovarian cyst. She had an endometria l biopsy. This was for postmenopa usal bleeding. She continues to have some low back pain. She has some pelvic pressure. We checked her urine. She may have urinary tract infection we intend to treat for UTI. We reviewed the results of her cyst and her endometria l biopsy. We spent over 25 minutes face-to-fa ce. We talked about urinary tract infection, we talked about her ultrasound results and her biopsy results. We talked about further follow-up. We agreed to repeat ultrasound 6 weeks. She will follow-up with me after that imaging. [id number] Guicho Goodman MD [place] [address],[place] [address] 06/20/2021 15:07:20 06/20/2021 16:17:12 Cyst of right ovary [id number] N83.291 [id number] Guicho Goodman MD [place] [address],[place] [address] 06/28/2021 11:06:50 06/28/2021 12:10:15 Cyst of ovary 42673040 N83.209 This patient is a 70-year-ol d female who presents for follow-up on postmenopa usal bleeding, pelvic discomfort , ovarian cyst. Her pain is improving. She is has no bleeding. She is status post endometria l biopsy that was normal. We repeated ultrasound to follow the cyst. It appears unchanged. We agreed to 1 more repeat due to her age in the unique nature of an ovarian cyst in a 70-year-ol d female. She will return for repeat ultrasound 3 months and see me. We spent 15 minutes face-to-fa ce. [id number] Guicho Goodman MD [place] [address],[place] [address] 09/27/2021 10:53:47 09/27/2021 11:38:51 Cyst of right ovary [id number] N83.291 [id number] Guicho Goodman MD [place] [address],[place] [address] 10/04/2021 10:54:12 10/07/2021 14:50:12 Cyst of ovary 05732320 N83.209 this patient is a 71-year-ol d female presents for follow-up on ovarian cyst. Cyst has gotten smaller, appears at least stable, appears very benign. Patient is no pain. There were some very small cystic structures within the endometriu m. She has had an endometria l biopsy that was normal. We can observe this situation. She does not require any treatment. We will observe for symptoms. Health Concerns Section Related Observation LastModified by Organization Detai ls LastModified Time None Recorded Concern Status LastModified by Organization Details LastModified Time None Recorded Advance Directives Directive N: Payers Insurance Date Sequence Insurance Name Policy Number Policy G[place]ord Covered Member ID G[place]ord Member ID Guarantor Name 10/07/2021 1 [facility] - DOS ON OR AFTER 20 (MEDICAID REPLACEMENT - HMO) Raphael Chaves [id number] Raphael Chaves Notes Date Note Type Note Provider Name and Address Organization Details Recorded Time 05/08/2021 text/html this patient is a 70-year-old female presents for follow-up on ovarian cyst. She had an endometrial biopsy. This was for postmenopausal bleeding. She continues to have some low back pain. She has some pelvic pressure. We checked her urine. She may have urinary tract infection we intend to treat for UTI. We reviewed the results of her cyst and her endometrial biopsy. We spent over 25 minutes [id number]. We talked about urinary tract infection, we talked about her ultrasound results and her biopsy results. We talked about further follow-up. We agreed to repeat ultrasound 6 weeks. She will follow-up with me after that imaging. Guicho Goodman MD [address], [place], [address], [facility] 05/08/2021 15:25:57 06/28/2021 text/html This patient is a 70-year-old female who presents for follow-up on postmenopausal bleeding, pelvic discomfort, ovarian cyst. Her pain is improving. She is has no bleeding. She is status post endometrial biopsy that was normal. We repeated ultrasound to follow the cyst. It appears unchanged. We agreed to 1 more repeat due to her age in the unique nature of an ovarian cyst in a 70-year-old female. She will return for repeat ultrasound 3 months and see me. We spent 15 minutes [id number]. Guicho Goodman MD [address], [place], [address], [facility] 06/28/2021 11:36:01 10/04/2021 text/html this patient is a 71-year-old female presents for follow-up on ovarian cyst. Cyst has gotten smaller, appears at least stable, appears very benign. Patient is no pain. There were some very small cystic structures within the endometrium. She has had an endometrial biopsy that was normal. We can observe this situation. She does not require any treatment. We will observe for symptoms. Guicho Goodman MD [address], [place], [address], [place] [facility] 10/04/2021 21:54:01 OBGyn Episode Ob Episode Information Episode Created Date Number of Fetuses Patient Bloodtype Patient rh Status Prepregnancy Weight lbs Domestic Partner Domestic Partner Phone Father Name Buffer Copper Status 04/27/19 22 1 CLOSED Fetus Data First Name Last Name Admitted to NICU Weight (g) Sex Living Outcome Pediatric Complications Fetus ID Race Codes Race Delivery Type F [id number] Vaginal Delivery Jesus Manuel Calculation Initial Jesus Manuel Date Initial Exam Date Initial Exam Provider Initial Ultrasound Date Last Menstrual Period Date Ultra Sound Weeks Gestation 0 Eighteen To Twenty Week Jesus Manuel Update Ultra Sound Date Fundal Height At Umbil Quickening Date Ultra Sound Latest Weeks Gestation Final Jesus Manuel Confirmed By Final Jesus Manuel Confirmed Date Final Jesus Manuel Date Ultra Sound Latest Days Gestation 0 0 Menstrual History Last Menstrual Date Menses Monthly On Bcp Conception Prior Menses Frequency Hcg Plus Date Menarche Onset Age Delivery Information Delivery Date Delivery Type Labor Anesthesia Weeks Gestation Incision Type Labor Labor Length Hrs Delivered By Post Complications Tubal Sterilization Discharge Date Comments Discharge Information Feeding Method Contraceptive Method Maternal HG B and HCT Levels Ob Episode Information Episode Created Date Number of Fetuses Patient Bloodtype Patient rh Status Prepregnancy Weight lbs Domestic Partner Domestic Partner Phone Father Name Buffer Copper Status 04/27/19 22 1 CLOSED Fetus Data First Name Last Name Admitted to NICU Weight (g) Sex Living Outcome Pediatric Complications Fetus ID Race Codes Race Delivery Type , Induced [id number] Jesus Manuel Calculation Initial Jesus Manuel Date Initial Exam Date Initial Exam Provider Initial Ultrasound Date Last Menstrual Period Date Ultra Sound Weeks Gestation 0 Eighteen To Twenty Week Jesus Manuel Update Ultra Sound Date Fundal Height At Umbil Quickening Date Ultra Sound Latest Weeks Gestation Final Jesus Manuel Confirmed By Final Jesus Manuel Confirmed Date Final Jesus Manuel Date Ultra Sound Latest Days Gestation 0 0 Menstrual History Last Menstrual Date Menses Monthly On Bcp Conception Prior Menses Frequency Hcg Plus Date Menarche Onset Age Delivery Information Delivery Date Delivery Type Labor Anesthesia Weeks Gestation Incision Type Labor Labor Length Hrs Delivered By Post Complications Tubal Sterilization Discharge Date Comments 0 Discharge Information Feeding Method Contraceptive Method Maternal HG B and HCT Levels
--- OUTSIDE RECORDS SUMMARY | 2024-12-07 19:09 | XMS_ITS | Clinical Summary ---
Author Organization [facility] [employer] Address [facility] [place] [address] Care Team Providers Care Director Of Teenage Activities Name Role Phone Fareed Becerra MD Primary Care Provider Source Comments [facility] [employer],non-owned Affiliates and Associated Physician Practices is amultiple site organization consisting of ambulatory clinics and hospital sitesin [place], [place], [place] and [place]. This disclosure is being madepursuant to the Care Everywhere program and may not contain all information available regarding this patient. Last updated 17.[employer] Allergies No known active allergies Medications * Be aware that medications may not be up to date on this document. Alwaysverify current medications with the patient. gabapentin (NEURONTIN) 300 MG capsule Take 1 (one) capsule by mouth once daily 8 Active simvastatin (ZOCOR) 10 MG tablet Take 1 tablet by mouth once daily 8 Active Coenzyme Q10 (CO Q-10) 120 MG Take 120 mg by mouth 2 times daily Active Calcium Carbonate (CALCIUM 600 PO) Take 1 tablet by mouth 2 times daily Active famotidine (PEPCID) 40 MG tablet Take 1 (one) tablet by mouth once daily 2 Active omeprazole (PRILOSEC) 20 MG capsule 2 Active famotidine (PEPCID) 20 MG tablet Take 1 (one) tablet by mouth 2 times daily 2 Active carbidopa-levod opa (Sinemet) 25-100 MG tabletIndicatio ns:Parkinson's Disease Take 2.5 (two and one-half) tablets by mouth 3 times daily Reasons: Parkinson's Disease 750 tablet 3 10/06/202 5 Active selegiline (Eldepryl) 5 MG tabletIndicatio ns:Parkinson's Disease Take 1 (one) tablet by mouth 2 times daily with morning and evening meal Reasons: Parkinson's Disease 180 tablet 5 5 Active carbidopa-levod opa (Sinemet) 25-100 MG tabletIndicatio ns:Parkinson's Disease Take 2 (two) tablets by mouth 3 times daily Reasons: Parkinson's Disease 540 tablet 5 3 11/22/19 25 Discontinu ed(Reorder ) selegiline (Eldepryl) 5 MG tabletIndicatio ns:Parkinson's Disease Take 1 (one) tablet by mouth 2 times daily with morning and evening meal Reasons: Parkinson's Disease 180 tablet 5 3 11/22/19 25 Discontinu ed(Reorder ) Active Problems Problem Noted Date Diagnosed Date Osteoporosis 12/03/2020 Encounters Date Type Department Care Team Description 11/21/2024 3:00 PM CDT Office Visit [facility] - Neurology [address] [place] [phone] Devante Walton, GERONIMO-JOHAN Idiopathic Parkinson's disease (HCC) (Primary Dx) 11/21/2024 Travel from Last 3 Months Immunizations Immunization Administration Dates Next Due INFLUENZA [...] Sign Reading Time Taken Comments Blood Pressure 145/80 11/21/2024 2:55 PM CDT Pulse 80 11/21/2024 2:55 PM CDT Temperature 36.7 C (98 F) 03/03/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 Respiratory Rate 20 03/03/2023 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 Oxygen Saturation 97% 11/21/2024 2:55 PM CDT Inhaled Oxygen Concentration - - Weight 49 kg (108 lb) 11/21/2024 2:55 PM CDT Height 152.4 cm (5') 11/20/2022 9:12 AM CDT Body Mass Index 21.09 11/20/2022 9:12 AM CDT Plan of Treatment Health Maintenance Due Date Last Done Comments [...] patient's age to complete this topic Insurance SELF PAY NO INSURANCE Member Subscriber Plan / Payer (Ef fective for All Dates) Name:Raphael Fernandes Member ID:Not on file Relation to Subscriber:Not on file Name:RAPHAEL FERNANDES Subscriber ID:Not on file (Home) Address: [address] [place], [place] [id number] Payer ID:Not on file Group ID:Not on file Type:Self Pay Address: [place], [place] Care Teams Director Of Teenage Activities Relationship Specialty Start Date End Date Fareed Becerra MD PCP - General 01/11/18
[2024-12-08 14:08] LABS: Albumin 3.8 g/dL (2.9-4.4); Alpha-1-Globulin 0.3 g/dL (0.0-0.4); Alpha-2-Globulin 0.9 g/dL (0.4-1.0); Gamma Globulin 1.1 g/dL (0.4-1.8)
== END 2024-12-07 14:43 | disposition home or self-care (01) ==
LOC: ANHLAB 14:53
PROVIDERS: PCP Emergency Medicine; Visit Provider Internal Medicine Hematology & Oncology
DX: D63.8 Anemia in other chronic diseases classified elsewhere (principal)
CPT/HCPCS: 36415; 80053; 82607; 82728; 82746; 83540; 83550; 84155; 84165; 84238; 85025

== ENCOUNTER 2024-12-07 15:29 | Outpatient (CLI) | payer OTHER, SELFPAY ==
--- NOTE | ~2024-12-07 | CT_ITS ---
CT abdomen pelvis w con INDICATION:LOWER ABD PAIN . COMPARISON: None. TECHNIQUE: Axial images of the abdomen and pelvis were obtained following infusion of 100 mL Isovue 300. Dose optimization technique was utilized. FINDINGS: There are groundglass opacities bilaterally. The liver parenchyma is unremarkable. No intr 5 mm hepatic cysts are noted. Hepatic mass or ductal dilatation is evident. The gallbladder is unremarkable. The pancreas and spleen are normal in appearance. The adrenal glands are symmetric in size. The kidneys demonstrate symmetric uptake and excretion of contrast. No cystic mass is evident. There is no solid mass. There is no hydronephrosis. Evaluation of the stomach and bowel loops are limited due to lack of oral contrast. There are no bowel obstruction. Appendix is normal in appearance. The bladder and rectum are normal. No free intraperitoneal fluid or air is evident. There is no significant retroperitoneal lymphadenopathy. The aorta, visceral vessels and renal arteries demonstrate normal caliber and patency. The lower thoracic and lumbar vertebrae are in normal alignment. IMPRESSION: Groundglass opacities are present bilaterally. No acute abdominal or pelvic findings. All CT scans at this facility are performed using low dose modulation techniques as appropriate to perform exam including the following: automated exposure control; use of iterative reconstruction technique; adjustment of the mA and/or kV according to patient size (this includes techniques or standardized protocols for targeted exams where dose is matched to indication/reason for exam). Reviewed, dictated and finalized at location S. IMPRESSION: Groundglass opacities are present bilaterally. No acute abdominal or pelvic findings. All CT scans at this facility are performed using low dose modulation techniqu es as appropriate to perform exam including the following: automated exposure c ontrol; use of iterative reconstruction technique; adjustment of the mA and/or kV according to patient size (this includes techniques or standardized protocol s for targeted exams where dose is matched to indication/reason for exam).
[2024-12-07 16:23] LABS: Estimated Glomerular Filt Rate > 60
--- OUTSIDE RECORDS SUMMARY | 2024-12-07 19:46 | XMS_ITS | Clinical Summary ---
Author Organization [facility] [employer] Address [facility] [place] [address] Care Team Providers Care Pharmaceutical Assistant Name Role Phone Fareed Becerra MD Primary Care Provider [phone] Source Comments [facility] [employer],non-owned Affiliates and Associated Physician Practices is amultiple site organization consisting of ambulatory clinics and hospital sitesin [place], [place], [place] and [place]. This disclosure is being madepursuant to the Care Everywhere program and may not contain all information available regarding this patient. 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
== END 2024-12-07 15:30 | disposition home or self-care (01) ==
PROVIDERS: PCP Emergency Medicine; Visit Provider Internal Medicine Hematology & Oncology
DX: R10.30 Lower abdominal pain, unspecified (principal); M81.0 Age-related osteoporosis without current pathological fracture; M85.851 Other specified disorders of bone density and structure, right thigh
CPT/HCPCS: 74177; Q9967

== ENCOUNTER 2024-12-08 12:37 | Outpatient (CLI) | payer OTHER, SELFPAY ==
--- NOTE | ~2024-12-08 | DEXA_ITS ---
Bone Density Report Name: BONIFACIO FERNANDES Age: 74 Sex: Female Ethnicity: White Date of : 1950 Indication: postmenopausal; screening for osteoporosis; height loss; secondary osteoporosis; Referring Provider: ABNER HANCOCK Study: Bone densitometry was performed. Exam Date: December 08, 2024 Accession number: [id number] Bone Density: Region BMD T-score Z-score Classification AP Spine(L1-L4) 1.075 0.3 2.7 Normal Femoral Neck (Left) 0.561 -2.6 -0.5 Osteoporosis Total Hip (Left) 0.828 -0.9 0.9 Normal Femoral Neck (Right) 0.628 -2.0 0.1 Osteopenia Total Hip (Right) 0.888 -0.4 1.4 Normal Femoral Neck Mean 0.595 -2.3 -0.2 Osteopenia Total Hip Mean 0.858 -0.7 1.1 Normal World Health Organization criteria for BMD impression classify patients as: Normal (T-score at or above -1.0), Osteopenia (T-score between -1.0 and -2.5), or Osteoporosis (T-score at or below -2.5). 10-year Fracture Risk: FRAX not reported because: Some T-score for Spine Total or Hip Total or Femoral Neck at or below -2.5 Treated for osteoporosis Clinical Information Provided by Patient: Smokes Has secondary osteoporosis Is being treated for osteoporosis Patient maximum height was 63 Menopause Age: 47 No regular weight bearing exercise Onset of menses at age 15 Number of children 1 Impression: The patient has osteoporosis, based on the Left Femoral Neck T-score. The patient has risk factors, including: smoking. Discussion: It is important to ask patients whether they are taking their medications and to encourage continued and appropriate compliance with their osteoporosis therapies to reduce fracture risk. It is also important to review their risk factors and encourage appropriate calcium and vitamin D intakes, exercise, fall prevention and other lifestyle measures. Follow-Up: Consider a repeat BMD and Vertebral Fracture Assessment (VFA) exam in 2 years or sooner if medically necessary, to reassess this patient's status. Reported by: ANNETTA on 12/08/2024 1:08:00 PM. Reviewed, dictated and finalized at location A.
--- OUTSIDE RECORDS SUMMARY | 2024-12-08 13:24 | XMS_ITS | Clinical Summary ---
Author Organization [facility] [employer] Address [facility] [place] [address] Care Team Providers Care Tobacco Hanger Name Role Phone Fareed Becerra MD Primary Care Provider [phone] Source Comments [facility] [employer],non-owned Affiliates and Associated Physician Practices is amultiple site organization consisting of ambulatory clinics and hospital sitesin [place], [place], [place] and [place]. This disclosure is being madepursuant to the Care Everywhere program and may not contain all information available regarding this patient. Last updated 17.[employer] Allergies No known active allergies Medications * [...] Office Visit [facility] - Neurology [address] [place] [phone] Devante Walton, GERONIMO-JOHAN Idiopathic Parkinson's disease (HCC) [...] 36.7 C (98 F) 03/03/2023 8:22 AM FOAM CHARGER Respiratory Rate 20 03/03/2023 8:22 AM FOAM CHARGER Oxygen Saturation 97% 11/21/2024 2:55 PM CDT [...] FERNANDES Subscriber ID:Not on file (Home) Address: [address] [place], [place] [id number] Payer ID:Not on file Group ID:Not on file Type:Self Pay Address: [place], [place] Care Teams Tobacco Hanger Relationship Specialty Start Date End Date Fareed Becerra MD PCP - General 01/11/18
== END 2024-12-08 12:38 | disposition home or self-care (01) ==
PROVIDERS: PCP Emergency Medicine; Visit Provider Emergency Medicine
DX: Z78.0 Asymptomatic menopausal state (principal); M81.0 Age-related osteoporosis without current pathological fracture; M85.88 Other specified disorders of bone density and structure, other site
CPT/HCPCS: 77080

== ENCOUNTER 2024-12-22 05:57 | Outpatient (CLI) | payer OTHER, SELFPAY ==
--- NOTE | 2024-12-22 06:15 | SUR.OPER ---
Patient brought to GI Lab. Instructions for patient undergoing Capsule Endoscopy reviewed with patient. Consent form signed. Sensor array applied to patient's abdomen and connected to recorded. Patient swallowed capsule with 12 ozs of water infused with Simethicone. Patient instructed they may have clear liquids at 8:30 this AM and eat or drink at 10:30 this AM. Patient instructed to return to GI Lab at 1500 this afternoon for removal of recording device and to call [phone] or to return to the hospital if any nausea and vomiting or abdominal pain is experienced.
--- NOTE | 2024-12-22 06:41 | SUR.OPER ---
Pt's daughter, Renetta, reviewed consent with patient. Verbalizes understanding with no questions or concerns.
--- NOTE | 2024-12-22 14:27 | SUR.OPER ---
Patient returned to the GI Lab at 1420 for recorder box removal. Patient voiced no complaints. States they have understanding of instructions. Patient left ambulatory. PT states no issues with instructions.
--- OUTSIDE RECORDS SUMMARY | 2024-12-22 16:15 | XMS_ITS | Data Portability ---
Author Organization [facility], [place] Address [address] [place] [place] [address] Care Team Providers Care Pulley Mortiser Operator Name Role Phone ABNER HANCOCK Primary Care Provider [phone] Assessment No assessment recorded. Plan of Treatment Reminders Order Date Submit Date Provider Last Modified By Organization Details Last Modified Time Details Appointments None recorded. Lab None recorded. Referral None recorded. Procedures None recorded. Surgeries None recorded. Imaging US, transvagina l 2021 [address], [address], [place], [address], 21:30:49 US, pelvis 2021 [address], [address], [place], [address], 00:39:28 US, transvagina l 2021 [address], [address], [place], [address], 00:39:28 Medication Orders None recorded. Patient TargetsNo [...] ed by Mynor Anaya on Not Available [facility] (Lab) [address], [place], [address], 04/29/2021 16:43:00 05/09/19 22 05/08/2021 CULTU RE: URINE result report SEE RESULT S BELOW Test: Cultu re: Urine Speci men Sourc e: Urine - Clean Catch Speci men Type: Urine Speci men Date: 2021 3:06 PM Resul t Date: 2021 7:54 PM Resul t Statu s: Final resul t Abnor mal: No Resul ting Lab: [facility] [address] [place] [address] [facility] [address] Tel: CULTU RE ----- ----- ----- --- No growt h in 1 day (dete ction level of 10,00 0 colon ies / ml.) Not Available [facility] (Lab) [address], [place], [address], 05/09/2021 20:56:30 05/09/19 22 05/08/2021 urina lysis , dipst ick Leukocytes TRACE Not Available [facility] [address], [place], [address], 05/08/2021 15:44:57 04/27/19 22 04/26/2021 US, pelvi s, trans abdom inal + trans vagin al No observ ation record ed. [facility] [address], [place], [address], 04/30/2021 11:14:51 06/21/19 22 06/20/2021 US, pelvi s No observ ation record ed. [email or web address] [place] [address], [place], [address], 06/20/2021 16:14:28 06/21/19 22 06/20/2021 US, trans vagin al No observ ation record ed. [email or web address] [place] [address], [place], [address], 06/20/2021 16:14:39 06/21/19 22 06/20/2021 US, pelvi s No observ ation record ed. [email or web address] [address], [place], [address], 06/21/2021 00:30:11 09/28/19 22 09/27/2021 US, trans vagin al No observ ation record ed. [email or web address] [place] [address], [place], [address], 09/27/2021 13:21:05 09/28/19 22 09/27/2021 US, trans vagin al No observ ation record ed. [email or web address] [address], [place], [address], 09/29/2021 19:09:55 Result Notes None recorded. Procedures Surgical History Date Name Laterality Status Provider Name and Address Organization Details Recorded Time 04/27/19 Endometrial Biopsy completed Guicho Goodman MD [address], [place], [address], [facility] 04/26/2021 13:37:01 Imaging Results None recorded. [...] Updated DateTime 05/08/2021 154.94 cm 24 kg/m2 48424.23 g 134/85 mm[Hg] [facility] 05/08/2021 14:55:49 Date Recorded Body height Body mass index (BMI) Body weight Systolic And Diastolic Provider Name and Address Organization Details Last Updated DateTime 06/28/2021 154.94 cm 24 kg/m2 95646.23 g 137/84 mm[Hg] [facility] 06/28/2021 11:20:33 Date Recorded Body height Body mass index (BMI) Body weight Systolic And Diastolic Provider Name and Address Organization Details Last Updated DateTime 10/04/2021 154.94 cm 24.2 kg/m2 34383.82 g 115/81 mm[Hg] [facility] 10/04/2021 11:01:16 Social History Question Answer [...] Or The Highest Degree You Have Received? ON80771-3 Information not available 10/04/2021 Are There Any [...] anxious, or unable to sleep at night)? [id number] Information not available 10/04/2021 Family History Relationship Description Onset Age of this Age Resolved Age Notes LastModified by Organization Details LastModified Time Father Heart disease Not available 2021 14:08:30 Father Hyperlipidem ia [email or web address] Not available 2021 10:54:23 Father Hypertensive disorder Not available 2021 14:09:12 Brother Heart disease Not available 2021 14:08:30 Brother Hypertensive disorder Not available 2021 14:09:12 Sister Hypertensive disorder Not available 2021 14:09:12 Sister Female infertility [email or web address] Not available 09/16 10:54:23 Medical History Condition [...] ICD10 Code Diagnosis IMO Codes Diagnosis Note [id number] Guicho Goodman MD [place] [address] [address] 04/26/2021 11:50:17 04/26/2021 13:41:23 Postmenopausal bleeding 04700131 N95.0 this patient is a 70-year-ol d [...] performed the biopsy. She tolerated it well. [id number] Guicho Goodman MD [place] [address] [address] 05/08/2021 14:49:36 05/08/2021 15:27:44 Cyst of ovary 56780738 N83.209 Pain in pelvis 92206355 R10.2 Urinary tr act infectious disease 76381363 N39.0 this patient is a 70-year-ol d [...] will follow-up with me after that imaging. [id number] Guicho Goodman MD [place] [address],[place] [address] 06/20/2021 15:07:20 06/20/2021 16:17:12 Cyst of right ovary 8588177132 3511990 N83.291 [id number] Guicho Goodman MD [place] [address],[place] [address] 06/28/2021 11:06:50 06/28/2021 12:10:15 Cyst of ovary 23266767 N83.209 This patient is a 70-year-ol d [...] me. We spent 15 minutes face-to-fa ce. [id number] Guicho Goodman MD [place] [address],[place] [address] 09/27/2021 10:53:47 09/27/2021 11:38:51 Cyst of right ovary [id number] 7357364 N83.291 [id number] Guicho Goodman MD [place] [address] [address] 10/04/2021 10:54:12 10/07/2021 14:50:12 Cyst of ovary 87208179 N83.209 this patient is a 71-year-ol d [...] Gifford Member ID Guarantor Name 10/07/2021 1 [facility] - DOS ON OR AFTER 20 (MEDICAID REPLACEMENT - HMO) Raphael Chaves [id number] Raphael Chaves Notes Date Note Type Note [...] endometrial biopsy. We spent over 25 minutes [id number]. We talked about urinary tract infection, we talked about her ultrasound results and her biopsy results. We talked about further follow-up. We agreed to repeat ultrasound 6 weeks. She will follow-up with me after that imaging. Guicho Goodman MD [address], [place], [address], [facility] 05/08/2021 15:25:57 06/28/2021 text/html This [...] and see me. We spent 15 minutes [id number]. Guicho Goodman MD [address], [place], [address], [facility] 06/28/2021 11:36:01 10/04/2021 text/html this [...] will observe for symptoms. Guicho Goodman MD [address], [place], [address], [facility] 10/04/2021 21:54:01 OBGyn Episode Ob Episode Information Episode Created Date Number of Fetuses Patient Bloodtype Patient rh Status Prepregnancy Weight lbs Domestic Partner Domestic Partner Phone Father Name Brick Unloader Tender Status 04/27/19 22 1 CLOSED Fetus Data First Name Last Name Admitted to NICU Weight (g) Sex Living Outcome Pediatric Complications Fetus ID Race Codes Race Delivery Type F [id number] Vaginal Delivery Jesus Manuel Calculation Initial Jesus [...] Post Complications Tubal Sterilization Discharge Date Comments 7 Discharge Information Feeding Method Contraceptive Method Maternal HG B and HCT Levels Ob Episode Information Episode Created Date Number of Fetuses Patient Bloodtype Patient rh Status Prepregnancy Weight lbs Domestic Partner Domestic Partner Phone Father Name Brick Unloader Tender Status 04/27/19 22 1 CLOSED Fetus Data First Name Last Name Admitted to NICU Weight (g) Sex Living Outcome Pediatric Complications Fetus ID Race Codes Race Delivery Type , Induced [id number] Jesus Manuel Calculation Initial Jesus Manuel Date [...]
--- OUTSIDE RECORDS SUMMARY | 2024-12-22 16:15 | XMS_ITS | Clinical Summary ---
Author Organization [facility] [employer] Address [address] [place] [address] Care Team Providers Care Personal Lines Agent Name Role Phone Fareed Becerra MD Primary Care Provider [phone] Source Comments [facility] [employer],non-owned Affiliates and Associated Physician Practices is amultiple site organization consisting of ambulatory clinics and hospital sitesin [place], [place], [place] and [place]. This disclosure is being madepursuant to the Care Everywhere program and may not contain all information available regarding this patient. Last updated 17.[employer] Allergies No known active allergies Medications * [...] daily Reasons: Parkinson's Disease 750 tablet 3 11/21/2024 Active selegiline (Eldepryl) 5 MG tabletIndicatio ns:Parkinson's Disease Take 1 (one) tablet by mouth 2 times daily with morning and evening meal Reasons: Parkinson's Disease 180 tablet 5 11/21/2024 Active Active Problems Problem Noted Date Diagnosed Date Osteoporosis 12/03/2020 Encounters Date Type Department Care Team Description 12/19/2024 2:20 PM PRODUCTION CONTROLLER [facility] [address] [place] [phone] J Luis Andrews MD Age-related osteoporosis without current pathological fracture (Primary Dx) 12/19/2024 Travel 11/21/2024 3:00 PM CDT Office Visit [facility] - Neurology [address] [place] [phone] Devante Walton APRN-JOHAN Idiopathic Parkinson's disease (HCC) (Primary Dx) 11/21/2024 [...] Sign Reading Time Taken Comments Blood Pressure 103/65 12/19/2024 2:19 PM PRODUCTION CONTROLLER Pulse 76 12/19/2024 2:19 PM PRODUCTION CONTROLLER Temperature 36.4 C (97.5 F) 12/19/2024 2:19 PM PRODUCTION CONTROLLER Respiratory Rate 16 12/19/2024 2:19 PM PRODUCTION CONTROLLER Oxygen Saturation 96% 12/19/2024 2:19 PM PRODUCTION CONTROLLER Inhaled Oxygen Concentration - - Weight 49.1 kg (108 lb 3.2 oz) 12/19/2024 2:19 P M PRODUCTION CONTROLLER Height 152.4 cm (5') 12/19/2024 2:19 PM PRODUCTION CONTROLLER Body Mass Index 21.13 12/19/2024 2:19 PM PRODUCTION CONTROLLER Plan of Treatment Upcoming Encounters Date Type Department Care Team (Late st Contact Info) Description 06/19/2025 1:00 PM CDT Office Visit [facility] - Endocrinology [address] [place] [address], [place] [address] J Luis Andrews MD [address] [place] [address] [place] [address] Health Maintenance Due Date Last Done Comments [...] patient's age to complete this topic Insurance [facility] SELF PAY NO INSURANCE Member Subscriber Plan / Payer (Ef fective for All Dates) Name:Raphael Fernandes Member ID:Not on file Relation to Subscriber:Not on file Name:RAPHAEL FERNANDES Subscriber ID:Not on file (Home) Address: [address] [place] [phone] Payer ID:Not on file Group ID:Not on file Type:Self Pay Address: [place], [place] Care Teams Personal Lines Agent Relationship Specialty Start Date End Date Fareed Becerra MD PCP - General 01/11/18
== END 2024-12-22 05:58 | disposition home or self-care (01) ==
LOC: ANHENDO 05:57
PROVIDERS: PCP Emergency Medicine; Referring Provider Emergency Medicine; Visit Provider Internal Medicine Gastroenterology
PROC: (CPT 91110; principal; 2024-12-22 07:00)
DX: Z01.812 Encounter for preprocedural laboratory examination (principal); D50.9 Iron deficiency anemia, unspecified
CPT/HCPCS: 91110